=== PATIENT | female | born 1980 | race Caucasian/White ===

== ENCOUNTER 2022-09-07 12:49 | Emergency (ER) | payer OTHER ==
[~2022-09-07] VITALS: Ht 157.5 cm; Wt 68.0 kg
[2022-09-07] MEDS ORDERED: KETOROLAC TROMETHAMINE 30 MG/ML VIAL IV STA (13:12)
[2022-09-07] MEDS ORDERED: SODIUM CHLORIDE 0.9% 1000ML 1,000 ML IV ONE (13:15)
[2022-09-07 13:36] LABS: BASOPHILS % 0.1 % (0.0-1.0); HEMATOCRIT 36.6 % (34.2-44.1); HEMOGLOBIN 12.5 g/dL (12.0-16.0); LYMPHOCYTES # (AUTO) 1.8 (1.0-3.2); LYMPHOCYTES % 8.2 % (18.0-39.1); MEAN CORPUSCULAR HEMOGLOBIN 28.7 pg (28-32); MEAN CORPUSCULAR HGB CONC 34.2 g/dL (31-35); MEAN CORPUSCULAR VOLUME 83.9 fL (81-99); MONOCYTES # (AUTO) 1.4 (0.2-0.8); MONOCYTES % 6.4 % (4.4-11.3); NEUTROPHILS # (AUTO) 17.9 (2.1-6.9); NEUTROPHILS % 83.6 % (38.7-80.0); PLATELET COUNT 246 x10e3/uL (140-360); RED BLOOD COUNT 4.36 x10e6/uL (3.6-5.1); RED CELL DISTRIBUTION WIDTH 14.1 % (11.7-14.4)
[2022-09-07] MEDS ORDERED: FENTANYL CITRATE/PF 100MCG/2 ML INJ IV ONE (13:45)
[2022-09-07] MEDS ORDERED: Vancomycin IV 1 GM in SODIUM CHLORIDE 0.9% 250ML 250 ML IV SCH (13:45)
[2022-09-07 13:53] LABS: ALBUMIN 2.9 g/dL (3.5-5.0); ALBUMIN/GLOBULIN RATIO 0.7 (0.8-2.0); CALCIUM 9.2 mg/dL (8.4-10.2); CREATININE, SERUM 1.03 mg/dL (0.57-1.11)
[2022-09-07] MEDS ORDERED: IOPAMIDOL 370 MG/ML 100 ML INFUS..BTL INJ ONE (14:19)
[2022-09-07] MEDS ORDERED: Morphine 4mg INJECTION 4 MG/ML INJ IV PRN (14:45)
[2022-09-07] MEDS ORDERED: ONDANSETRON HCL INJ 2MG/ML 2ML 2 MG/ML VIAL IV PRN (14:45)
[2022-09-07] MEDS ORDERED: CEFTRIAXONE 1 GM VIAL IM ONE (15:00)
[2022-09-07] MEDS ORDERED: Morphine 10mg syringe 10 MG/ML INJ IM ONE (15:00)
[2022-09-07] MEDS ORDERED: CEFTRIAXONE 1 GM VIAL ONE (15:13)
[2022-09-07] MEDS ORDERED: LIDOCAINE 1% 10 ML MULTIDOSE VIAL IJ ONE (15:14)
[2022-09-07] MEDS ORDERED: Morphine 4mg INJECTION 4 MG/ML INJ ONE (15:30)
[2022-09-07] MEDS ORDERED: Morphine 4mg INJECTION 4 MG/ML INJ IM ONE (15:30)
[2022-09-07 15:41] VITALS: O2SAT 100
[2022-09-08] MEDS ORDERED: SODIUM CHLORIDE 0.9% 1000ML 1,000 ML IV SCH
== END 2022-09-07 16:43 | disposition home or self-care (01) ==
LOC: ER 12:56 → ERHOLD 14:39 → UNDOADMIN 14:39 → ER 16:43
DX: A41.9 Sepsis, unspecified organism (principal); L08.9 Local infection of the skin and subcutaneous tissue, unspecified; W54.0XXD Bitten by dog, subsequent encounter; Z20.822 Contact with and (suspected) exposure to COVID-19
CPT/HCPCS: 0223U; 36415; 80053; 83605; 84702; 85025; 87040; 99284; J0696; J2270; Q9967

== ENCOUNTER 2022-09-07 19:23 | Inpatient (IN) | payer OTHER ==
[~2022-09-07] VITALS: Ht 157.5 cm; Wt 68.0 kg
[~2022-09-07 19:23] MED LIST: KETOROLAC TROMETHAMINE 30 MG/ML VIAL ONE; LIDOCAINE HCL 2% LOCAL INJ 5 ML SDV VIAL INJ ONE; PHENYLEPHRINE HCL 1% 10 MG/ML VIAL ONE; POVIDONE IODINE 0.05% 0.05 % ML PO ONE; PROPOFOL IV EMULSION 10 MG/ML 20 ML VIAL ONE
[2022-09-07] MEDS ORDERED: SODIUM CHLORIDE 0.9% 1000ML 1,000 ML IV STA (19:36)
[2022-09-07] MEDS ORDERED: Vancomycin IV 1 GM in SODIUM CHLORIDE 0.9% 250ML 250 ML IV STA (19:36)
[2022-09-07] MEDS ORDERED: Morphine 4mg INJECTION 4 MG/ML INJ IV PRN (19:45)
[2022-09-07] MEDS ORDERED: ONDANSETRON HCL INJ 2MG/ML 2ML 2 MG/ML VIAL IV PRN (19:45)
[2022-09-07 20:35] LABS: BASOPHILS % 0.2 % (0.0-1.0); EOSINOPHILS % 0.1 % (0.0-6.0); HEMATOCRIT 32.5 % (34.2-44.1); HEMOGLOBIN 11.2 g/dL (12.0-16.0); LYMPHOCYTES # (AUTO) 2.5 (1.0-3.2); LYMPHOCYTES % 11.7 % (18.0-39.1); MEAN CORPUSCULAR HEMOGLOBIN 28.7 pg (28-32); MEAN CORPUSCULAR HGB CONC 34.5 g/dL (31-35); MEAN CORPUSCULAR VOLUME 83.3 fL (81-99); MONOCYTES # (AUTO) 1.6 (0.2-0.8); MONOCYTES % 7.8 % (4.4-11.3); NEUTROPHILS # (AUTO) 16.7 (2.1-6.9); NEUTROPHILS % 79.2 % (38.7-80.0); PLATELET COUNT 254 x10e3/uL (140-360); RED CELL DISTRIBUTION WIDTH 14.1 % (11.7-14.4)
[2022-09-07] MEDS ORDERED: PIPERACILLIN/TAZOBACTAM 3.375 GM VIAL ONE (20:38)
[2022-09-07] MEDS ORDERED: Vancomycin IV 1 GM VIAL ONE (20:38)
[2022-09-07] MEDS ORDERED: ACETAMINOPHEN 325 MG TAB PO STA (20:39)
[2022-09-07] MEDS ORDERED: SODIUM CHLORIDE 0.9% 250ML 250 ML ONE (20:39)
[2022-09-07] MEDS ORDERED: SODIUM CHLORIDE 0.9% 1000ML 1,000 ML ONE (20:39)
[2022-09-07] MEDS ORDERED: ACETAMINOPHEN 325 MG TAB ONE (20:41)
[2022-09-07] MEDS ORDERED: ONDANSETRON HCL INJ 2MG/ML 2ML 2 MG/ML VIAL ONE (20:42)
[2022-09-07] MEDS ORDERED: Morphine 4mg INJECTION 4 MG/ML INJ ONE (20:42)
[2022-09-07 20:46] LABS: ALBUMIN 2.6 g/dL (3.5-5.0); ALBUMIN/GLOBULIN RATIO 0.7 (0.8-2.0); ANION GAP 16.1 mmol/L (8-16); CALCIUM 9.2 mg/dL (8.4-10.2); CREATININE, SERUM 0.74 mg/dL (0.57-1.11); POTASSIUM 3.1 mmol/L (3.5-5.1)
[2022-09-07] MEDS: SODIUM CHLORIDE 0.9% 1000ML 1,000 ML IV SCH (22:55)
[2022-09-07] MEDS: HYDROMORPHONE 1MG/1ML INJ IV PRN (22:56)
[2022-09-08] VITALS (10 sets, daily range): BP systolic 98–128; BP diastolic 54–70; PULSE 79–88; RESP 16–22; TEMP 98–100.2; O2SAT 96–100
[2022-09-08] MEDS: SODIUM CHLORIDE 0.9% 1000ML 1,000 ML IV SCH ×3 (04:38→20:54)
[2022-09-08] MEDS: HYDROMORPHONE 1MG/1ML INJ IV PRN ×3 (05:03→16:43)
[2022-09-08 06:24] LABS: BASOPHILS % 0.2 % (0.0-1.0); EOSINOPHILS # (AUTO) 0.1 (0.0-0.4); EOSINOPHILS % 0.6 % (0.0-6.0); HEMATOCRIT 30.7 % (34.2-44.1); HEMOGLOBIN 10.5 g/dL (12.0-16.0); LYMPHOCYTES % 11.9 % (18.0-39.1); MEAN CORPUSCULAR HEMOGLOBIN 28.3 pg (28-32); MEAN CORPUSCULAR HGB CONC 34.2 g/dL (31-35); MEAN CORPUSCULAR VOLUME 82.7 fL (81-99); MONOCYTES % 5.8 % (4.4-11.3); NEUTROPHILS # (AUTO) 13.8 (2.1-6.9); PLATELET COUNT 258 x10e3/uL (140-360); RED BLOOD COUNT 3.71 x10e6/uL (3.6-5.1); RED CELL DISTRIBUTION WIDTH 13.9 % (11.7-14.4)
[2022-09-08 06:51] LABS: ALBUMIN 2.2 g/dL (3.5-5.0); ALBUMIN/GLOBULIN RATIO 0.6 (0.8-2.0); ANION GAP 16.8 mmol/L (8-16); CALCIUM 8.7 mg/dL (8.4-10.2); CREATININE, SERUM 0.66 mg/dL (0.57-1.11); POTASSIUM 2.8 mmol/L (3.5-5.1)
[2022-09-08] MEDS ORDERED: POTASSIUM CHLORIDE 20 MEQ TAB CR PO STA (08:09)
[2022-09-08] MEDS ORDERED: FENTANYL CITRATE/PF 100MCG/2 ML INJ ONE (14:01)
[2022-09-08] MEDS ORDERED: MIDAZOLAM HCL 2 MG/2 ML VIAL ONE (14:01)
[2022-09-08 15:12] LABS: AMPHETAMINES SCREEN,URINE NEGATIVE (NEGATIVE); BENZODIAZEPINES SCREEN,URINE NEGATIVE (NEGATIVE); PHENCYCLIDINE SCREEN,URINE NEGATIVE (NEGATIVE)
[2022-09-08] MEDS: ACETAMINOPHEN 325 MG TAB PO PRN (17:11)
[2022-09-09] VITALS (10 sets, daily range): BP systolic 98–120; BP diastolic 61–78; PULSE 75–92; RESP 16–19; TEMP 97.4–99.3; O2SAT 98–100
[2022-09-09] MEDS: HYDROMORPHONE 1MG/1ML INJ IV PRN ×3 (01:26→23:36)
[2022-09-09] MEDS: SODIUM CHLORIDE 0.9% 1000ML 1,000 ML IV SCH (03:45)
[2022-09-09] MEDS ORDERED: HYDROMORPHONE 1MG/1ML INJ IV ONE (10:00)
[2022-09-09] MEDS ORDERED: HYDROMORPHONE 1MG/1ML INJ ONE (10:00)
[2022-09-09] MEDS ORDERED: HYDROMORPHONE 1MG/1ML INJ IV STA (11:49)
[2022-09-09] MEDS: NICOTINE 21 MG/EA PATCH TOP SCH (13:09)
[2022-09-09] MEDS: HYDROCODONE/APAP 7.5MG-325MG 1 EA TAB PO PRN (21:02)
[2022-09-09] MEDS: ACETAMINOPHEN 325 MG TAB PO PRN (21:12)
[2022-09-09] MEDS ORDERED: ACETAMINOPHEN 325 MG TAB PO PRN (21:45)
[2022-09-10] VITALS (10 sets, daily range): BP systolic 113–132; BP diastolic 65–73; PULSE 80–101; RESP 18–20; TEMP 98.1–100.8; O2SAT 97–100
[2022-09-10] MEDS: HYDROMORPHONE 1MG/1ML INJ IV PRN ×4 (05:40→18:56)
[2022-09-10] MEDS: NICOTINE 21 MG/EA PATCH TOP SCH (09:26)
[2022-09-10] MEDS: ONDANSETRON HCL INJ 2MG/ML 2ML 2 MG/ML VIAL IV PRN ×3 (09:37→18:56)
[2022-09-10] MEDS ORDERED: IOPAMIDOL 370 MG/ML 100 ML INFUS..BTL INJ ONE (09:44)
[2022-09-10] MEDS: HYDROCODONE/APAP 7.5MG-325MG 1 EA TAB PO PRN (14:20)
[2022-09-10] MEDS: AMOXICILLIN/CLAVULANATE K 875 MG TAB PO SCH (20:37)
[2022-09-11] VITALS (8 sets, daily range): BP systolic 115–132; BP diastolic 57–86; PULSE 85–91; RESP 16–19; TEMP 98.2–101.5; O2SAT 97–100
[2022-09-11] MEDS: ONDANSETRON HCL INJ 2MG/ML 2ML 2 MG/ML VIAL IV PRN ×3 (02:33→18:27)
[2022-09-11] MEDS: HYDROMORPHONE 1MG/1ML INJ IV PRN ×3 (02:33→18:27)
[2022-09-11] MEDS: AMOXICILLIN/CLAVULANATE K 875 MG TAB PO SCH ×2 (09:54→21:08)
[2022-09-11] MEDS: NICOTINE 21 MG/EA PATCH TOP SCH (09:54)
[2022-09-11] MEDS: MUPIROCIN 2% OINT 22 GM TUBE TOP SCH (09:55)
[2022-09-11 14:18] LABS: BASOPHILS % 0.2 % (0.0-1.0); EOSINOPHILS # (AUTO) 0.1 (0.0-0.4); EOSINOPHILS % 0.7 % (0.0-6.0); HEMATOCRIT 29.8 % (34.2-44.1); LYMPHOCYTES # (AUTO) 2.9 (1.0-3.2); LYMPHOCYTES % 23.8 % (18.0-39.1); MEAN CORPUSCULAR HEMOGLOBIN 28.4 pg (28-32); MEAN CORPUSCULAR HGB CONC 33.6 g/dL (31-35); MEAN CORPUSCULAR VOLUME 84.7 fL (81-99); MONOCYTES # (AUTO) 1.2 (0.2-0.8); MONOCYTES % 10.1 % (4.4-11.3); NEUTROPHILS # (AUTO) 7.7 (2.1-6.9); NEUTROPHILS % 63.8 % (38.7-80.0); PLATELET COUNT 379 x10e3/uL (140-360); RED BLOOD COUNT 3.52 x10e6/uL (3.6-5.1); RED CELL DISTRIBUTION WIDTH 14.9 % (11.7-14.4)
[2022-09-11] MEDS: HYDROCODONE/APAP 7.5MG-325MG 1 EA TAB PO PRN (21:08)
[2022-09-12] VITALS: BP 141/80; PULSE 80; RESP 20; TEMP 98.4; O2SAT 100
[2022-09-12] MEDS: HYDROMORPHONE 1MG/1ML INJ IV PRN (03:25)
[2022-09-12] MEDS: ONDANSETRON HCL INJ 2MG/ML 2ML 2 MG/ML VIAL IV PRN (03:26)
[2022-09-12 04:00] VITALS: BP 120/72; PULSE 81; RESP 18; TEMP 98.6; O2SAT 100
[2022-09-12 08:20] VITALS: BP 127/83; PULSE 79; RESP 22; TEMP 98.4; O2SAT 100
[2022-09-12 09:00] VITALS: BP 127/83; PULSE 79; RESP 22; TEMP 98.4; O2SAT 100
[2022-09-12] MEDS: NICOTINE 21 MG/EA PATCH TOP SCH (09:31)
[2022-09-12] MEDS: AMOXICILLIN/CLAVULANATE K 875 MG TAB PO SCH (09:31)
[2022-09-12] MEDS: MUPIROCIN 2% OINT 22 GM TUBE TOP SCH (09:32)
[2022-09-12] MEDS: HYDROCODONE/APAP 7.5MG-325MG 1 EA TAB PO PRN ×2 (09:32→15:04)
[2022-09-12 10:19] LABS: BASOPHILS % 0.3 % (0.0-1.0); EOSINOPHILS # (AUTO) 0.2 (0.0-0.4); EOSINOPHILS % 2.2 % (0.0-6.0); HEMATOCRIT 31.3 % (34.2-44.1); HEMOGLOBIN 10.4 g/dL (12.0-16.0); LYMPHOCYTES # (AUTO) 3.4 (1.0-3.2); MEAN CORPUSCULAR HEMOGLOBIN 28.3 pg (28-32); MEAN CORPUSCULAR HGB CONC 33.2 g/dL (31-35); MEAN CORPUSCULAR VOLUME 85.1 fL (81-99); MONOCYTES # (AUTO) 0.9 (0.2-0.8); NEUTROPHILS # (AUTO) 5.5 (2.1-6.9); NEUTROPHILS % 53.1 % (38.7-80.0); PLATELET COUNT 424 x10e3/uL (140-360); RED BLOOD COUNT 3.68 x10e6/uL (3.6-5.1); RED CELL DISTRIBUTION WIDTH 14.9 % (11.7-14.4)
[2022-09-12 10:28] LABS: ALBUMIN/GLOBULIN RATIO 0.5 (0.8-2.0); CREATININE, SERUM 0.69 mg/dL (0.57-1.11)
[2022-09-12 12:08] VITALS: BP 123/86; PULSE 79; RESP 23; TEMP 98.1; O2SAT 100
[2022-09-12] MEDS ORDERED: ONDANSETRON ODT8 MG PO (15:39)
[2022-09-12] MEDS ORDERED: AUGMENTIN 500-1 EACH PO ×2 (15:42→15:46)
[2022-09-12] MEDS ORDERED: ACETAMINOPHEN-1 EAC4 PO (15:52)
[2022-09-12] MEDS ORDERED: AUGMENTIN PO (15:59)
[2022-09-12 16:02] VITALS: BP 145/79; PULSE 71; RESP 23; TEMP 98.4; O2SAT 100
[2022-09-12] MEDS ORDERED: TYLENOL #3 (16:13)
== END 2022-09-12 16:41 | disposition home or self-care (01) | DRG 872 ==
LOC: ER 19:30 → ERHOLD 19:40 → MED/SURG2 21:21
PROVIDERS: ADMIT Internal Medicine; ATTEND Internal Medicine
PROC: 0J9P0ZZ Drainage of Left Lower Leg Subcutaneous Tissue and Fascia, Open Approach (ICD-10-PCS; principal; 2022-09-09 09:16)
DX: A41.9 Sepsis, unspecified organism (principal); L02.416 Cutaneous abscess of left lower limb; L03.116 Cellulitis of left lower limb; W54.0XXA Bitten by dog, initial encounter; I10 Essential (primary) hypertension; E87.6 Hypokalemia; F17.210 Nicotine dependence, cigarettes, uncomplicated; S71.152A Open bite, left thigh, initial encounter; L08.9 Local infection of the skin and subcutaneous tissue, unspecified; Z20.822 Contact with and (suspected) exposure to COVID-19
CPT/HCPCS: 36415; 73701; 80053; 80307; 81025; 85025; 87071; 87205; 99252; 99284; J1170; J1885; J2001; J2250; J2270; J2370; J2405; J2543; J7030; J7050; Q9967